=== PATIENT | male | born 1990 | race Caucasian/White ===

== ENCOUNTER 2018-02-12 19:28 | Emergency (ER) | payer BC ==
[~2018-02-12] VITALS: Ht 185.4 cm; Wt 90.7 kg
[~2018-02-12 19:28] MED LIST: CETI10CA PO
--- OUTSIDE RECORDS SUMMARY | 2018-02-12 19:33 | XMS REPORT | Continuity of Care Document ---
Author Author [facility] Organization [facility] Address Unknown Phone Unavailable Allergies Active Description Code Type Severity Reaction Onset Reported/Identified Relationship to Patient Clinical Status Yes No Known Drug Allergies [id number] Drug Allergy Unknown N/A 01/26/2014 Medications There is no data. Problems Date Dx Coded Attending Type Code Diagnosis Diagnosed By 01/26/2014 BARBARA COLIN DO Ot 729.81 02/27/2014 GREGORY CHILDRESS Ot 415.19 03/11/2014 ALONZO MENDEZ, LUZ MARIA De Guzman Ot 415.19 03/11/2014 ALONZO MENDEZ, LUZ MARIA De Guzman Ot 453.82 03/11/2014 GREGORY CHILDRESS Ot 415.19 03/19/2014 GREGORY CHILDRESS Ot 415.19 03/25/2014 ZULEYMA DELGADO MD Ot 415.19 08/09/2014 GREGORY CHILDRESS Ot 415.19 10/04/2014 ALONZO MENDEZ, LUZ MARIA De Guzman Ot 415.19 10/04/2014 ALONZO MENDEZ, LUZ MARIA De Guzman Ot 453.82 11/26/2014 ALONZO MENDEZ, LUZ MARIA De Guzman Ot 415.19 11/26/2014 ALONZO MENDEZ, LUZ MARIA De Guzman Ot 453.82 Procedures There is no data. Results There is no data. Encounters ACCT No. Visit Date/Time Discharge Status Pt. Type Provider Facility Loc./Unit Complaint [id number] 02/28/2014 11:50:00 02/28/2014 23:59:59 CLS Outpatient ZULEYMA DELGADO MD [facility] RAD [id number] 02/21/2014 14:34:00 02/21/2014 23:59:59 CLS Outpatient GREGORY CHILDRESS [facility] LAB [id number] 02/21/2014 07:48:00 02/21/2014 23:59:59 CLS Outpatient LUZ MARIA ROSADO MD [facility] [id number] 01/26/2014 18:09:00 01/26/2014 20:23:00 DIS Emergency BARBARA COLIN DO [facility] ER
[2018-02-12] MEDS ORDERED: LORazepam INJ 2 MG/ML (ATIVAN) VIAL IVP PRN ×3 (19:45→20:45)
[2018-02-12 19:52] LABS: BASOPHILS % (AUTO) 1 % (0-10); EOSINOPHILS # (AUTO) 0.1 10^3/uL (0.0-0.3); EOSINOPHILS % (AUTO) 1 % (0-10); HEMATOCRIT 43 % (40-54); LYMPHOCYTES # (AUTO) 1.9 X 10^3 (1.0-4.0); LYMPHOCYTES % (AUTO) 34 % (12-44); MEAN CORPUSCULAR HEMOGLOBIN 31 PG (25-34); MEAN CORPUSCULAR HGB CONC 35 G/DL (32-36); MEAN CORPUSCULAR VOLUME 88 FL (80-99); MEAN PLATELET VOLUME 10.1 FL (7.4-10.4); MONOCYTES # (AUTO) 0.7 X 10^3 (0.0-1.0); MONOCYTES % (AUTO) 12 % (0-12); NEUTROPHILS % (AUTO) 53 % (42-75); PLATELET COUNT 252 10^3/uL (130-400); RED BLOOD COUNT 4.87 10^6/uL (4.35-5.85); RED CELL DISTRIBUTION WIDTH 12.2 % (10.0-14.5); WHITE BLOOD COUNT 5.7 10^3/uL (4.3-11.0)
[2018-02-12 20:06] LABS: ALANINE AMINOTRANSFERASE 29 U/L (0-55); ALBUMIN 4.9 GM/DL (3.2-4.5); ALKALINE PHOSPHATASE 59 U/L (40-136); BILIRUBIN,TOTAL 0.7 MG/DL (0.1-1.0); BUN/CREATININE RATIO 15; CALCIUM 9.4 MG/DL (8.5-10.1); CARBON DIOXIDE 21 MMOL/L (21-32); CHLORIDE 101 MMOL/L (98-107); CREATININE SERUM 1.32 MG/DL (0.60-1.30); GFR ESTIMATED > 60; GLUCOSE 113 MG/DL (70-105); POTASSIUM 3.3 MMOL/L (3.6-5.0); SODIUM 137 MMOL/L (135-145); TOTAL PROTEIN 8.1 GM/DL (6.4-8.2)
--- NOTE | 2018-02-12 20:14 | ED Cardiac General ---
History of Present Illness General Chief Complaint: Psych/Social Disorder Stated Complaint: HEART RACING, ARM HURTING Source: patient Exam Limitations: no limitations History of Present Illness Date Seen by Provider: Feb 12, 2018 Time Seen by Provider: 20:11 Initial Comments To ER with reports of heart racing and left arm hurting. He has a history of thoracic outlet syndrome and had the left first rib removed surgically near [place] about 3 years ago. Recently he's been having some swelling and pain in the left arm. Tonight he developed a sensation of tachycardia and shortness of breath and he also feels very anxious. Timing/Duration: 4-6 hours Severity: moderate Location: central Prior CP/Workup: no prior chest pain NTG SL DIRECTOR INTERNAL AUDIT: No ASA po DIRECTOR INTERNAL AUDIT: No Associated Systoms: Chest Pain, Shortness of Air Allergies and Home Medications Allergies Coded Allergies: No Known Drug Allergies (Unverified , 01/26/14) Home Medications Cetirizine Hcl 10 Mg Capsule, 10 MG PO DAILY PRN for SORE THROAT, (Reported) Patient Home Medication List Home Medication List Reviewed: Yes Review of Systems Review of Systems Constitutional: see HPI EENTM: No Symptoms Reported Respiratory: See HPI, Shortness of Air Cardiovascular: See HPI, Irregular Heart Rate, Palpitations Gastrointestinal: No Symptoms Reported Genitourinary: No Symptoms Reported Musculoskeletal: no symptoms reported Skin: no symptoms reported Psychiatric/Neurological: No Symptoms Reported Endocrine: No Symptoms Reported Past Vxdpanq-Qwubsz-Cmznsh Hx Patient Social History Recent Foreign Travel: No Contact w/Someone Who Travel: No Immunizations Up To Date PED Vaccines UTD: Yes Seasonal Allergies Seasonal Allergies: Yes Past Medical History Reproductive Disorders: No Physical Exam Vital Signs Capillary Refill : Height, Weight, BMI Height: 6'1" Weight: 210lbs. oz. 95.342922az; BMI Method:Stated General Appearance: No Apparent Distress, WD/WN, Anxious HEENT: PERRL/EOMI, TMs Normal Neck: Full Range of Motion, Normal Inspection Respiratory: Lungs Clear, Normal Breath Sounds, No Accessory Muscle Use, No Respiratory Distress Cardiovascular: Normal Peripheral Pulses, Other (despite complaints of "heart racing" his heart rate is only 105 sinus no ectopy. Oxygen saturation 98% on room air.) Gastrointestinal: Non Tender, Soft Extremity: Normal Capillary Refill, Normal Inspection, Other (there is no swelling visualized or palpated by me to the left upper or right upper extremity.) Neurologic/Psychiatric: Alert, Oriented x3 Skin: Normal Color, Warm/Dry Progress/Results/Core Measures Results/Orders Lab Results Laboratory Tests Test 02/12/18 19:42 Range/Units White Blood Count 5.7 4.3-11.0 10^3/uL Red Blood Count 4.87 4.35-5.85 10^6/uL Hemoglobin 15.0 13.3-17.7 G/DL Hematocrit 43 40-54 % Mean Corpuscular Volume 88 80-99 FL Mean Corpuscular Hemoglobin 31 25-34 PG Mean Corpuscular Hemoglobin Concent 35 32-36 G/DL Red Cell Distribution Width 12.2 10.0-14.5 % Platelet Count 252 130-400 10^3/uL Mean Platelet Volume 10.1 7.4-10.4 FL Neutrophils (%) (Auto) 53 42-75 % Lymphocytes (%) (Auto) 34 12-44 % Monocytes (%) (Auto) 12 0-12 % Eosinophils (%) (Auto) 1 0-10 % Basophils (%) (Auto) 1 0-10 % Neutrophils # (Auto) 3.0 1.8-7.8 X 10^3 Lymphocytes # (Auto) 1.9 1.0-4.0 X 10^3 Monocytes # (Auto) 0.7 0.0-1.0 X 10^3 Eosinophils # (Auto) 0.1 0.0-0.3 10^3/uL Basophils # (Auto) 0.0 0.0-0.1 10^3/uL D-Dimer 0.20 0.00-0.49 UG/ML Sodium Level 137 135-145 MMOL/L Potassium Level 3.3 L 3.6-5.0 MMOL/L Chloride Level 101 98-107 MMOL/L Carbon Dioxide Level 21 21-32 MMOL/L Anion Gap 15 H 5-14 MMOL/L Blood Urea Nitrogen 20 H 7-18 MG/DL Creatinine 1.32 H 0.60-1.30 MG/DL Estimat Glomerular Filtration Rate > 60 BUN/Creatinine Ratio 15 Glucose Level 113 H 70-105 MG/DL Calcium Level 9.4 8.5-10.1 MG/DL Corrected Calcium 8.5-10.1 MG/DL Total Bilirubin 0.7 0.1-1.0 MG/DL Aspartate Amino Transf (AST/SGOT) 34 5-34 U/L Alanine Aminotransferase (ALT/SGPT) 29 0-55 U/L Alkaline Phosphatase 59 40-136 U/L Total Creatine Kinase 448 H 30-200 U/L Myoglobin 48.5 10.0-92.0 NG/ML Total Protein 8.1 6.4-8.2 GM/DL Albumin 4.9 H 3.2-4.5 GM/DL Thyroid Stimulating Hormone (TSH) 0.75 0.35-4.94 UIU/ML Free Thyroxine 1.08 0.70-1.48 NG/DL My Orders Orders - MARIE MARTINEZ BOOKY Cbc With Automated Diff (02/12/18 19:43) Comprehensive Metabolic Panel (02/12/18:43) Thyroid Stimulating Hormone (02/12/18:43) Free T4 (Free Thyroxine) (02/12/18 19:43) Iv Heplock-Insert (Order) (02/12/18 19:43) Chest 1 View, Ap/Pa Only (02/12/18 19:43) Fibrin Degradation Products (02/12/18 19:43) Lorazepam Injection (Ativan Injection) (02/12/18 19:45) Lorazepam Injection (Ativan Injection) (02/12/18 20:00) Ns Iv 1000 Ml (Sodium Chloride 0.9%) (02/12/18 20:15) Lorazepam Injection (Ativan Injection) (02/12/18 20:45) Creatine Kinase (02/12/18 20:31) Myoglobin Serum (02/12/18 20:31) Ua Culture If Indicated (02/12/18 20:49) Drug Screen Stat (Urine) (02/12/18 20:49) Medications Given in ED Current Medications Medications Dose Ordered Sig/Mali Route Start Time Stop Time Status Last Admin Dose Admin Lorazepam 1 mg ONCE PRN IVP 02/12/18 20:00 02/12/18 20:04 1 MG Lorazepam 1 mg ONCE PRN IVP 02/12/18 20:45 02/12/18 20:39 1 MG Departure Communication (Admissions) D-dimer is negative. States that he did feel somewhat short of breath yesterday after taking pre-workout supplement. Report is open about being witty he states that he did not take any workout supplement today but he states that he did drink "a bunch of coffee". 2031- still feels very anxious now his legs are shaking. Impression Primary Impression: Palpitations Additional Impression: Anxiety Disposition: 01 HOME, SELF-CARE Condition: Stable Departure-Patient Inst. Decision time for Depature: 20:14 Referrals: NO,LOCAL PHYSICIAN (PCP) Primary Care Physician Patient Instructions: Anxiety, Adult (DC), Palpitations Add. Discharge Instructions: 1. Follow-up with your primary care provider or [employer] [facility] if you are a [employer] student. Call tomorrow to make an appointment. In the meantime, reduce your caffeine intake to 1 cup of coffee per day or less and reduce her pre-workout supplement use. All discharge instructions reviewed with patient and/or family. Voiced understanding. MARIE MARTINEZ APRN Feb 12, 2018 20:14
[2018-02-12] MEDS ORDERED: NS IV 1000 ML 1,000 ML IV SCH (20:15)
--- NOTE | 2018-02-12 20:19 | Diagnostic Imaging Report ---
INDICATION: Shortness of air. Chest pain. COMPARISON: None. EXAMINATION: Single frontal view of the chest was obtained. FINDINGS: Normal heart size and pulmonary vascularity. The lungs are well aerated and clear. No large pleural effusion or pneumothorax is seen. The visualized osseous structures show no acute abnormalities. IMPRESSION: No acute cardiopulmonary process. Dictated by: Dictated on workstation # [id number]
[2018-02-12 20:27] LABS: FREE T4 (FREE THYROXINE) 1.08 NG/DL (0.70-1.48)
[2018-02-12 20:58] LABS: MYOGLOBIN SERUM 48.5 NG/ML (10.0-92.0)
[2018-02-12 21:17] VITALS: BP 150/92
== END 2018-02-12 21:17 | disposition home or self-care (01) ==
LOC: EDUNIT# 19:28 → ER 19:30
DX: R00.2 Palpitations (principal); F41.9 Anxiety disorder, unspecified; G54.0 Brachial plexus disorders
CPT/HCPCS: 36415; 71045; 80053; 82550; 83874; 84439; 84443; 85025; 85379; 93005; 96361; 96374; 96376

== ENCOUNTER 2023-01-19 14:40 | Day surgery (SDC) | payer BC ==
[2023-01-19] VITALS (8 sets, daily range): BP systolic 78–128; BP diastolic 45–75
[~2023-01-19] VITALS: Ht 185.4 cm; Wt 95.2 kg
[2023-01-19] MEDS ORDERED: ceFAZolin INJECTION 2,000 MG in NS (IVPB) 50 ML 50 ML IV STA (14:47)
--- NOTE | 2023-01-19 14:52 | ED Integumentary General ---
"General Chief Complaint: Trauma-Non Activation Stated Complaint: RT ARM INJ | FALL History of Present Illness Date Seen by Provider: Jan 19, 2023 Time Seen by Provider: 14:52 Initial Comments 32-year-old male presents with injury to his right arm. Patient was climbing up his tree stand when he slipped and cut his arm on the climbing sticks. He suffered a large laceration over the arm from mid upper arm to the elbow. Allergies and Home Medications Allergies Coded Allergies: No Known Drug Allergies (Unverified , 02/13/18) Patient Home Medication List Home Medication List Reviewed: Yes Cetirizine Hcl (Zyrtec) 10 Mg Capsule, 10 MG PO DAILY PRN for SORE THROAT, (Reported) Entered as Reported by: JESENIA IRAHETA on 01/26/14 1850 Review of Systems Review of Systems Constitutional: no symptoms reported, chills EENTM: no symptoms reported Respiratory: no symptoms reported Cardiovascular: no symptoms reported Gastrointestinal: no symptoms reported Musculoskeletal: see HPI Skin: see HPI Past Zyymynx-Aaxkdk-Xkftbx Hx Patient Social History Tobacco Use?: No Substance use?: No Alcohol Use?: No Immunizations Up To Date PED Vaccines UTD: Yes Seasonal Allergies Seasonal Allergies: Yes Past Medical History Surgery/Hospitalization HX: 4 KNEE SURGERY, SHOULDLER SURGERY, THORACTIC OUTLET SYNDROME Surgeries: Yes (thoracic outlet syndrome) Orthopedic Respiratory: No Cardiac: No Neurological: No Reproductive Disorders: No Gastrointestinal: No Musculoskeletal: No Endocrine: No Cancer: No Psychosocial: No Integumentary: No Blood Disorders: No Physical Exam Vital Signs Vital Signs - First Documented 01/19/23 14:46 Temp 36.6 Pulse 85 B/P (MAP) 161/98 (119) Pulse Ox 97 O2 Delivery Room Air Capillary Refill : General Appearance: WD/WN, no apparent distress Cardiovascular: normal peripheral pulses, regular rate, rhythm Respiratory: lungs clear, normal breath sounds Gastrointestinal: non tender, soft Extremities: normal range of motion, normal capillary refill Skin: other (Complex full-thickness laceration right mid upper arm down to the elbow.) Progress/Results/Core Measures Results/Orders My Orders Orders - ALBARO SANCHEZ DO Dipht/Pertuss(Acell)/Tet Adult (Dipht/Pe (01/19/23 15:00) Cefazolin Injection (Cefazolin Injecti (01/19/23 14:47) Fentanyl Injection (Fentanyl Injection (01/19/23 14:59) Morphine Injection (Morphine Injection (01/19/23 15:30) Medications Given in ED Current Medications Medications Dose Ordered Sig/Mali Route Start Time Stop Time Status Last Admin Dose Admin Morphine Sulfate 4 mg ONCE ONCE IVP 01/19/23 15:30 01/19/23 15:31 DC 01/19/23 15:34 4 MG Vital Signs/I&O 01/19/23 14:46 Temp 36.6 Pulse 85 B/P (MAP) 161/98 (119) Pulse Ox 97 O2 Delivery Room Air Progress Progress Note : Progress Note Patient with significant degloving injury of the right upper extremity. Discussed case with Dr. Hilton who saw patient in the ER. Patient to be transferred to the OR for surgical washout and suture placement. Patient was transferred to the OR in stable condition Departure Impression Primary Impression: Degloving injury of right upper extremity Qualified Codes: S41.101A - Unspecified open wound of right upper arm, initial encounter Disposition: ADMITTED INPATIENT Condition: Stable Admissions Decision to Admit Reason: Admit from ER (General) Decision to Admit/Date: Jan 19, 2023 Time/Decision to Admit Time: 15:36 Departure-Patient Inst. Referrals: NO,LOCAL PHYSICIAN (PCP/Family) Primary Care Physician ALBARO SANCHEZ DO Jan 19, 2023 14:52"
[2023-01-19] MEDS ORDERED: fentaNYL INJECTION 100 MCG/2 ML VIAL IVP STA ×2 (14:59→16:14)
[2023-01-19] MEDS ORDERED: Tetanus/Diphtheria/Pertussis (Acell) ADULT Vaccine 0.5 ML IM ONE (15:00)
[2023-01-19] MEDS ORDERED: morphine INJ 10 MG/ML 1ML (SYR OR VIAL) IVP ONE ×2 (15:30→18:30)
--- NOTE | 2023-01-19 15:41 | Consultation - Surgery ---
History of Present Illness History of Present Illness Patient Consulted On(song/time) 01/19/23 15:36 Time Seen by Provider: 15:01 History of Present Illness Surgery asked to consult regarding Right arm injury. HPI per ED: 32-year-old male presents with injury to his right arm. Patient was climbing up his tree stand when he slipped and cut his arm on the climbing sticks. He suffered a large laceration over the arm from mid upper arm to the elbow. When I saw pt he was calmly sitting in the bed in the ER. Stated pain was minimal. He related that as he fell he heard a "sound like tape ripping" and then felt pain, but didn't think anything was bad until he decided to take his jacket off and saw the injury. He states he ate [employer] at around 10:30. Allergies and Home Medications Allergies Coded Allergies: No Known Drug Allergies (Unverified , 02/13/18) Patient Home Medication List Home Medication List Reviewed: Yes Cetirizine Hcl (Zyrtec) 10 Mg Capsule, 10 MG PO DAILY PRN for SORE THROAT, (Reported) Entered as Reported by: JESENIA IRAHETA on 01/26/14 [id number] Past Ssbnilf-Nxwgwv-Zyygvq Hx Patient Social History Drug of Choice: THC Smoking Status: Never a Smoker Alcohol Use?: No Immunizations Up To Date PED Vaccines UTD: Yes Seasonal Allergies Seasonal Allergies: Yes Surgeries History of Surgeries: Yes (thoracic outlet syndrome) Surgeries: Orthopedic (Left first rib removed) Respiratory History of Respiratory Disorde: Yes Respiratory Disorders: Pulmonary Embolism Cardiovascular History of Cardiac Disorders: No Neurological History of Neurological Disord: No Reproductive System Hx Reproductive Disorders: No Gastrointestinal History of Gastrointestinal Di: No Musculoskeletal History of Musculoskeletal Dis: No Endocrine History of Endocrine Disorders: No Cancer History of Cancer: No Psychosocial History of Psychiatric Problem: No Integumentary History of Skin or Integumenta: No Blood Transfusions History of Blood Disorders: No Family Medical History Significant Family History: Hypertension (Grandfather), Other Conditions/Hx (states his parents do not have DM) Review of Systems-General Constitutional: No chills, No diaphoresis EENTM: No double vision, No mouth swelling, No epistaxis Respiratory: No cough, No dyspnea on exertion Cardiovascular: No chest pain, No palpitations Gastrointestinal: No abdominal pain, No nausea, No vomiting Genitourinary: No dysuria, No frequency, No hematuria Musculoskeletal: No joint pain; muscle pain, muscle twitching Skin: see HPI; No change in color, No change in hair/nails Psychiatric/Neurological: Denies Anxiety, Denies Depressed, Denies Seizure, Denies Tremors Physical Exam-General Problems Physical Exam Vital Signs Vital Signs - First Documented 01/19/23 14:46 Temp 36.6 Pulse 85 B/P (MAP) 161/98 (119) Pulse Ox 97 O2 Delivery Room Air Capillary Refill : General Appearance: WD/WN, mild distress Eyes: Bilateral Eye PERRL, Bilateral Eye EOMI HEENT: pharynx normal; No scleral icterus (R), No scleral icterus (L) Neck: non-tender, supple Respiratory: lungs clear, normal breath sounds, no respiratory distress, no accessory muscle use Cardiovascular: regular rate, rhythm, no murmur Gastrointestinal: non tender, soft, no organomegaly Back: no CVA tenderness, no vertebral tenderness Extremities: no pedal edema, no calf tenderness, other (Right arm degloving injury with debris in injured area, he can move his fingers and states he does not have any sensation loss) Neurologic/Psychiatric: satellite project site monitor II-XII nml as tested, no motor/sensory deficits, alert, normal mood/affect, oriented x 3 Skin: normal color, warm/dry Lymphatic: no adenopathy (neck, axilla or groin) Assessment/Plan Assessment/Plan Assessment/Plan Right Arm - degloving injury Plan to go to the OR for washout and closure of laceration. I did talk to him about the fact that I don't think this can wait and therefore he will be at increased risk of aspiration during intubation. Will get consent and start IV ABX. All questions answered to his satisfaction. PAUL COLE DO Jan 19, 2023 15:41
[2023-01-19] MEDS ORDERED: MIDAZOLAM INJ 2 MG/2 ML VIAL ONE (16:53)
[2023-01-19] MEDS ORDERED: SUCCINYLCHOLINE INJ 20 MG/1 ML 10 ML VIAL ONE (16:53)
[2023-01-19] MEDS ORDERED: fentaNYL INJECTION 100 MCG/2 ML VIAL ONE (16:53)
[2023-01-19] MEDS ORDERED: LACTATED RINGERS 1,000 ML 1,000 ML IV PRN (17:00)
[2023-01-19] MEDS ORDERED: ceFAZolin INJECTION 2,000 MG in NS (IVPB) 50 ML 50 ML IV ONE (17:30)
[2023-01-19] MEDS ORDERED: ceFAZolin INJECTION 2,000 MG ONE (17:44)
[2023-01-19] MEDS ORDERED: proPOfol INJECTION 200 MG/20 ML VIAL IV ONE (17:53)
[2023-01-19] MEDS ORDERED: LIDOCAINE PF 2% 5 ML VIAL ONE (17:53)
[2023-01-19] MEDS ORDERED: ONDANSETRON INJECTION 4 MG/2 ML (SDV) ONE (17:53)
[2023-01-19] MEDS ORDERED: SEVOFLURANE (ULTANE) 15 ML INHAL SOLN ONE (18:04)
--- NOTE | 2023-01-19 18:12 | Progress Note-Post Operative ---
Post-Operative Progess Note Surgeon (s)/Gas Treater (s) Surgeon PAUL COLE DO Gas Treater: SARITHA Pina Pre-Operative Diagnosis Degloving Injury Post-Operative Diagnosis same Procedure & Operative Findings Date of Procedure 01/19/23 Procedure Performed/Findings Washout and closure of right arm degloving, 23cm long Anesthesia Type GET Estimated Blood Loss Estimated blood loss (mL): minimal Specimens/Packing Specimens Removed none PAUL CLOE DO Jan 19, 2023 18:12
[2023-01-19] MEDS ORDERED: ACHD5005 PO (18:13)
--- NOTE | 2023-01-19 18:15 | Discharge Inst-Surgical ---
Discharge Inst-Surgical Depart Medication/Instructions New, Converted or Re-Newed RX: Transmitted to Pharmacy Patient Instructions Follow up Appt: Make appointment for 1 week. [phone] Instructions: No lifting greater than 20 pounds. No strenuous activity. May shower in 24 hours, no tub bath or soaking. Use incentive spirometer at home as directed. No Smoking Skin/Wound Care: May remove bandages in am. You need to come back to clinic and have stitches removed. Symptoms to Report: Appetite Changes, Extremity Discoloration, Numbness/Tingling, Swelling Increased, Bleeding Excessive, Eyesight Changes, Pain Increased, Urine Color Change, Constipation(Persistent), Fever over 101 degree F, Pain/Pressure in chest, Urinating Difficulty, Cough Up/Vomit Blood, Heart Beat Irreg/Pounding, Pain/Pressure in jaw, Cramps in feet or legs, Lightheadedness, Pain/Pressure in shoulder, Diarrhea(Persistent), Memory Changes Suddenly, Questions/Concerns, Weight gain consecutive days, Dizziness/Fainting, Nausea/Vomiting, Shortness of Breath, Weight gain over 2 pounds If questions or concerns contact your physician Or seek help at emergency department. Activity Activity as Tolerated: Yes use sling for a week or so Activity Instructions: Avoid Stress to Incision Driving Instructions: No Driving/Refer to Dr. Da Silva Discharge Diet: No Restrictions Diet After 24 Hours: Clear Liquid if Nauseous If Any Problems/Questions/Issu: Contact Your Physician, Go to Emergency Room Skin/Wound Care Infection Signs and Symptoms: Increased Redness, Foul Odor of Wound, Increased Drainage, Skin Itchy or Has a Rash, Increased Swelling, Temperature Above 101 F Bathing Instructions: Shower Stitches/Eloy/Dermabond Dis: Care of Stitches PAUL COLE DO Jan 19, 2023 18:15
--- NOTE | 2023-01-19 18:21 | Anesthesia-General Post-Op ---
General Patient Condition Mental Status/LOC: Same as Preop Cardiovascular: Satisfactory Nausea/Vomiting: Absent Respiratory: Satisfactory Pain: Controlled Complications: Absent Post Op Complications Complications None Follow Up Care/Instructions Patient Instructions None needed. Anesthesia/Patient Condition Patient Condition Patient is doing well, no complaints, stable vital signs, no apparent adverse anesthesia problems. No complications reported per nursing. EMY RG CRNA Jan 19, 2023 18:21
[2023-01-19] MEDS ORDERED: fentaNYL INJECTION 100 MCG/2 ML VIAL IVP ONE (18:30)
[2023-01-19] MEDS ORDERED: ONDANSETRON INJECTION 4 MG/2 ML (SDV) IVP PRN (18:30)
--- NOTE | 2023-01-22 18:03 | OPERATIVE REPORT ---
DATE OF SERVICE: 01/19/2023 PREOPERATIVE DIAGNOSIS: Degloving injury. POSTOPERATIVE DIAGNOSIS: Degloving injury. Measured 23 cm long. SURGEON: Dr. Hilton. COSMETICS SUPERVISOR: MARI Pina. ANESTHESIA: LMA. BLOOD LOSS: Scant. FLUIDS: Per anesthesia. POSTOPERATIVE CONDITION: Stable. INDICATIONS FOR PROCEDURE: The patient is a 32-year-old male who was climbing a deer to his deer stand and fell out of a tree, catching his arm on one of the climbing sticks, caused a degloving injury. Luckily this did not get into the deeper muscle. It was just above the fascia of the muscle, but completely took down all subcutaneous fat and skin. It was on the right arm just below the antecubital fossa, stitch [ ]. DESCRIPTION OF PROCEDURE: After informed consent was obtained, the patient was brought to the operating room and placed table in supine position, sterilely prepped and draped in normal fashion. He had a degloving injury down to the fascia, but above, there was a grass and dirt and foreign material. So, we used a liter with a pulse backhaul driver to carefully flushed this out and then I began picking out this foreign material with a [employer]ake[employer], pulled out small pieces of grass and sticks. Once I was felt that I have gotten all of the foreign material out, we then elected to close this incision, closed with a 30 stitches, fourteen vertical mattress stitches and sixteen simple interrupted stitches for a total of 23 cm long. It was then dressed with Xeroform, Kerlix and Emerson wrap and then placed the arm in a sling. He was then transferred to recovery room in stable condition. Sponge and needle count correct at the end of the case. Job ID: [id number] DocumentID: [id number] Dictated Date: 01/22/2023 16:01:57 Administrative Asst Date: 01/22/2023 18:01:00 Dictated By: PAUL HILTON DO
== END 2023-01-19 20:05 | disposition home or self-care (01) ==
LOC: EDUNIT# 14:40 → ER 14:42 → SDC 15:37
PROVIDERS: ATTEND Surgery
DX: S46.991A Other injury of unspecified muscle, fascia and tendon at shoulder and upper arm level, right arm, initial encounter (principal); S41.101A Unspecified open wound of right upper arm, initial encounter; W14.XXXA Fall from tree, initial encounter
CPT/HCPCS: 90471; 96365; 96375